=== PATIENT | male | born 1995 | race Caucasian/White ===

== ENCOUNTER 2019-01-24 03:12 | Emergency (ER) | payer BC ==
[2019-01-24] MEDS ORDERED: Lidocaine 1% w/Epinephrine 1:100K 20 ML VIAL ONE ×2 (03:54→04:08)
[2019-01-24] MEDS ORDERED: Lidocaine 4% Cream 5 GM TUBE w/ Tegaderm ONE (03:54)
[2019-01-24] MEDS ORDERED: Ondansetron PF 4 MG/2 ML Vial ONE (06:02)
[2019-01-24] MEDS ORDERED: Acetaminophen 500 MG TAB ONE (06:12)
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
== END 2019-01-24 06:19 | disposition home or self-care (01) ==
LOC: ERS 03:12
DX: S02.119A Unspecified fracture of occiput, initial encounter for closed fracture (principal); S01.511A Laceration without foreign body of lip, initial encounter; S01.01XA Laceration without foreign body of scalp, initial encounter; F10.129 Alcohol abuse with intoxication, unspecified; Y04.0XXA Assault by unarmed brawl or fight, initial encounter
CPT/HCPCS: 12002; 12014; 70450; 70486; 72125; 96374; J2405

== ENCOUNTER 2019-03-17 08:54 | Outpatient (CLI) | payer OTHER ==
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
== END 2019-03-17 08:55 | disposition home or self-care (01) ==
LOC: TBSIIMAG 08:54
PROVIDERS: ATTEND Surgery
DX: S02.11A Type I occipital condyle fracture, right side (principal)
CPT/HCPCS: 72125